=== PATIENT | male | born 2000 | race Two or more races ===

== ENCOUNTER 2021-11-18 21:01 | Emergency (ER) | payer OTHER ==
[~2021-11-18] VITALS: Ht 195.6 cm; Wt 84.7 kg
[2021-11-18 21:24] VITALS: BP 127/87
[2021-11-18] MEDS ORDERED: ONDANSETRON HCL 4MG/2ML INJ IV STA (23:47)
[2021-11-19] MEDS ORDERED: HYDROCORTISONE SOD SUCCINATE 100 MG/2 ML VIAL IV ONE
[2021-11-19] MEDS ORDERED: TETRACAINE/BENZOCAINE/BUTAMBEN 20 GM SPRAY MM NR
[2021-11-19] MEDS ORDERED: CLINDAMYCIN 600 MG in DEXTROSE 5% WATER 50 ML IV ONE ×2
[2021-11-19] MEDS ORDERED: SODIUM CHLORIDE 0.9% 1,000 ML IV ONE
[2021-11-19] MEDS ORDERED: IBUP-2028 MT (01:35)
[2021-11-19] MEDS ORDERED: CLIN-194 MT (01:35)
== END 2021-11-19 02:07 | disposition home or self-care (01) ==
LOC: ER 21:01
DX: J36 Peritonsillar abscess (principal)
CPT/HCPCS: 42700; 96365; 96375; 99284; J1720; J2405; J3490; J7030; J7060